=== PATIENT | female | born 1965 | race Caucasian/White ===

== ENCOUNTER 2024-10-17 10:19 | Outpatient (CLI) | payer OTHER, SELFPAY ==
--- OUTSIDE RECORDS SUMMARY | 2024-10-17 10:34 | XMS_ITS | Data Portability ---
Author Organization [facility] MARYLaura Warren Address 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 inspector follow up 6 months [email or web address] Not available 09/03/2024 12:50:22 Plan of Treatment Reminders Order Date Submit Date Provider Last Modified By Organization Details Last Modified Time Details Appointments ANY 15 2024 09:15A Darinel Mccartney MD Not available Not available Not available Lab lipid panel, serum 2024 025 [facility], [address], [place], [address], 08/30/2024 11:29:15 CMP, serum or plasma 2024 025 [facility] [email or web address] [email or web address], [address], [place], [address], 09/04/2024 11:49:15 CBC w/ auto diff [facility], [address], [place], [address], 09/04/2024 11:49:26 Referral None recorded. Procedures nerve conductio n study/EMG (PROC) - EMG/NCS b/l hands 2024 025 [facility] (Cardiology [facility]), [address], [place], [address], 09/27/2024 12:41:19 Surgeries None recorded. Imaging None recorded. Medication Orders Medrol (Juan) 4 mg tablets in a dose pack 2024 025 [id number], [address] [facility], [place], [place], [id number], 08/28/2024 17:54:10 Patient TargetsNo targets recorded. Patient Instructions Encounter Date Encounter Id Patient Instructions Last Modified By Organization Details Last Modified Time 08/28/2024 [id number] A healthy lifestyle: care instructions [email or web address] Not available 08/28/2024 17:54:10 Reason for Referral None Reported. Results Created Date Observation Date Name Description Value Unit Range Abnormal Flag Note LastModifiedBy Organization Detail LastModifiedTime 09/06/19 25 10/24/2021 MAMMO , scree erin, digit al, bilat eral No observ ation record ed. cyahlma Not Available 2024 14:58:33 09/06/19 25 08/12/2021 colon oscop y scree erin (PROC ) No observ ation record ed. BARCODE Not Available 2024 16:41:26 09/06/19 25 10/24/2021 MAMMO , scree erin, digit al, bilat eral No observ ation record ed. BARCODE Not Available 2024 16:41:26 Result Notes None recorded. Problems Name Problem SNOMED Code Status Onset Date Resolution Date Notes Provider Name and Address Organization Details Recorded Time Hand pain 73571163 Active 2024 MOHSEN Hernandez [place] - [facility] 12:40:41 Hyperlipidemia 75465354 Active 2024 MOHSEN Hernandez, [place] - [facility] 12:40:41 Problem Notes None recorded. Procedures Surgical History Date Name Laterality Status Provider Name and Address Organization Details Recorded Time 6 Eye Surgery completed Trena Polo MA [facility] 08/28/2024 12:39:26 Imaging Results Imaging Date Name Status LastModified by Organiz ation Details LastModified Time 10/24/2021 MAMMO, screening, digital, bilateral completed [email or web address] Information not available 09/12/2024 14:58:33 08/12/2021 colonoscopy screening (PROC) completed BARCODE Information not available 09/05/2024 16:41:26 10/24/2021 MAMMO, screening, digital, bilateral completed BARCODE Information not available 09/05/2024 16:41:26 Procedure Notes None recorded. Medical Equipment None Reported. Allergies No known drug allergies Medications Name Sig Start Date Stop Date Status Note LastModified by Organization Details LastModified Time amoxicillin 500 mg capsule TAKE 1 CAPSULE BY MOUTH THREE TIMES DAILY UNIL GONE 08/28 completed Not Available Not Available Not Available amoxicillin 500 mg tablet TAKE 1 TABLET BY MOUTH EVERY 8 HOURS UNTIL ALL TAKEN 08/28 completed Not Available Not Available Not Available methylpredn isolone 4 mg tablets in a dose pack FOLLOW PACKAGE DIRECTION S active Not Available Not Available No t Available rosuvastati n 20 mg tablet TAKE 1/2 TABLET BY MOUTH EVERY DAY active Not Available Not Available No t Available Vitals Date Recorded Body height Body mass index (BMI) Body weight Heart rate Oxygen saturation Oxygen saturation in Arterial blood by Pulse oximetry Systolic blood pressure Diastolic blood pressure Provider Name and Address Organization Details Last Updated DateTime 157.48 cm 28.6 kg/m2 43163.5 7 g 60 /min 97 % 97 % 128 mm[Hg] 62 mm[Hg] Trena Polo MA [facility] 11:46:40 Social History Question Answer Notes LastModified by Organizat ion Details LastModified Time Tobacco Smoking Status Never Smoker Trena Polo MA null, [facility] 08/28/2024 12:38:51 Do You Have An Advance Directive? No Information n ot available 08/28/2024 How Many Years Have You Consumed Alcohol? 30 Information not available 08/28/2024 Are You Blind Or Do You Have Difficulty Seeing? No Information n ot available 08/28/2024 What Is Your Level Of Caffeine Consumption? Occasional Information not available 08/28/2024 In The 14 Days Before Symptom Onset, Have You Had Close Contact With A Laboratory-confirm ed COVID-19 While That Case Was Ill? No Information n ot available 08/28/2024 In The 14 Days Before Symptom Onset, Have You Had Close Contact With A Person Who Is Under Investigation For COVID-19 While That Person Was Ill? No Information not available 08/28/2024 Have You Been To An Area Known To Be High Risk For COVID-19? No Information not available 08/28/2024 Are You Deaf Or Do You Have Serious Difficulty Hearing? No Information not available 08/28/2024 What Type Of Diet Are You Following? REGULAR Information n ot available 08/28/2024 Are There Any Guns Present In Your Home? No Information not available 08/28/2024 What Was The Date Of Your Most Recent Tobacco Screening? 08/28/2024 Information not available 08/28/2024 Do You Use Your Seat Belt Or Car Seat Routinely? Yes Information not available 08/28/2024 Do You Have Smoke And Carbon Monoxide Detectors In Your Home? Yes Information not available 08/28/2024 Do You Use Sunscreen Routinely? Yes Information not available 08/28/2024 Has Tobacco Cessation Counseling Been Provided? No Information not available 08/28/2024 Sex: Female Functional Status Question Answer Note LastModified by Organizat ion Details LastModified Time Do you use any illicit or recreational drugs? No Information not available 08/28/2024 Do you or have you ever used any other forms of tobacco or nicotine? No Information not available 08/28/2024 What is your level of alcohol consumption? Moderate Information not available 08/28/2024 Are you currently employed? Yes Information not available 08/28/2024 Are you able to care for yourself? Yes Information n ot available 08/28/2024 What is your exercise level? None Information not available 08/28/2024 Mental Status Question Answer Note LastModified by Organization D etails LastModified Time Do you feel stressed (tense, restless, nervous, or anxious, or unable to sleep at night)? [id number] Information not available 08/28/2024 Family History Relationship Description Onset Age of this Age Resolved Age Notes LastModified by Organization Details LastModified Time Father Coronary arterioscler osis mebyma Not available 2024 12:40:10 Father Dementia mebyma Not available 0 08/28/2024 12:40:18 Father Hypertensive disorder mebyma Not available 2024 12:40:32 Mother Coronary arterioscler osis mebyma Not available 2024 12:40:10 Mother Heart disease mebyma Not available 2024 12:40:26 Mother Hypercholest erolemia mebyma Not available 2024 12:40:38 Medical History Condition Response Coronary Artery Disease N Other N High Blood Pressure N Atrial Fibrillation N Kidney or Bladder Problems N Thyroid Problems N GI Problems N Depression N COPD N Blood Clots N Have you had a mammogram in the last yea r? N Skin Problems N Anemia N Heart Attack (AR) N Anxiety Disorder N Diabetes N Muscle, Joint, or Bone Problems N Seizures/Epilepsy N Have you had a colonoscopy in the last 1 0 years? N Acid Reflux (GERD) N Cancer N Stroke N Asthma N Allergies N Have you had a PSA blood test in the las t year? N High Cholesterol Y Hepatitis N Liver Disease N Headaches N Heart Failure N Osteoporosis N Gynecological HistoryNo gynecological history recorded. Obstetrics History GPAL:G 0 P 0 0 0 0 Immunizations Vaccine Type Date Status Note Provider Nam e and Address Organization Details Recorded Time COVID-19, mRNA, LNP-S, PF, 30 mcg/0.3 mL dose 2 completed Trena Melani, [place] null, [place] - [facility] 08/28/2024 11:39:41 COVID-19, mRNA, LNP-S, PF, 30 mcg/0.3 mL dose 1 completed Trena Polo, [place], [place] [facility] 08/28/2024 11:39:41 COVID-19, mRNA, LNP-S, PF, 30 mcg/0.3 mL dose 1 completed Trena Polo [place], [place] - [facility] 08/28/2024 11:39:41 Influenza, split virus, trivalent, PF 4 completed Trena Polo MA null, [facility] 08/28/2024 11:39:41 Influenza, split virus, quadrivalent, PF 1 completed Trena Polo MA null, [facility] 08/28/2024 11:39:41 Pneumococcal conjugate PCV20, polysaccharide [id number] conjugate, adjuvant, PF 5 completed Fransisco Mccartney MD Attn: [address] [place], [address], [facility] 09/03/2024 12:47:35 Past Encounters Encounter ID Performer Location Encounter Start Date Encounter Closed Date Diagnosis/Indication Diagnosis SNOMED-CT Code Diagnosis ICD10 Code Diagnosis Note [id number] Fransisco Mccartney MD [facility] [address] [place] [address] 08/28/2024 11:19:00 08/28/2024 12:42:59 Body mass index 25-29 - overweight 360094203 Z68.28 Overweight 904893358 E66 .3 Hand pain 74926981 M79.6 41 Hyperlipidemia 36546321 E78.5 Administra tion of pneumococcal vaccine 84807218 Z23 Health Concerns Section Related Observation LastModified by Organization Detai ls LastModified Time None Recorded Concern Status LastModified by Organization Details LastModified Time None Recorded Advance Directives Directive N: Payers Encounter Date Sequence Insurance Name Policy Number Policy Pastor Covered Member ID Pastor Member ID Guarantor Name 08/28/2024 1 [employer] - CHOICE (POS II) [id number] Derik Granados [id number] Piedad Granados Notes Date Note Type Note Provider Name and Address Organization Details Recorded Time 08/28/2024 text/html 59-year-old with dyslipidemia has had problems with carpal tunnel before and her back pain in her hands worse when she drives wakes her up at night sometimes Fransisco Mccartney MD Attn: [address] [place], [address], [facility] 09/03/2024 12:50:38 OBGyn Episode No OBEpisode recorded.
--- OUTSIDE RECORDS SUMMARY | 2024-10-17 10:34 | XMS_ITS | Data Portability ---
Author Organization [place] - [employer], Main Office Address [address] [place] [address] Care Team Providers Care Grocery Checker Name Role Phone JULIUS MCCARTNEY Primary Care Provider JULIUS MCCARTNEY Referring Provider [phone] Assessment Encounter Date Assessment Date Assessment LastModified by Organization Details LastModified Time 07/30/2022 07/30/2022 X-rays of the feet with nerve conduction studies check blood work in about 8 weeks as she has not been taking the rosuvastatin faithfully see me back in 3 months Podiatry referral [email or web address] Not available 09/06/2022 13:18:02 Plan of Treatment Reminders Order Date Submit Date Provider Last Modified By Organization Details Last Modified Time Details Appointments None recorded. 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 Surgeries None recorded. Imaging XR, foot 2022 023 lara [facility], [address] , [place], [address], 3 09:06:42 Medication Orders ergocalcife rol (vitamin D2) 1,250 mcg (50,000 unit) capsule 2022 023 [id number] [id number], [address], [place], [id number], 3 13:04:13 rosuvastati n 20 mg tablet [address] [id number], [address], [place], [id number], 3 13:04:13 Patient TargetsNo targets recorded. Patient InstructionsNo instructions recorded. Reason for Referral Facing Baster Referral for Pare sthesia of lower extremity Referring Physician: Julius Mccartney, Internal Medicine, Encounter Date: 07/30/2022 Results Created Date Observation Date Name Description Value Unit Range Abnormal Flag Note LastModifiedBy Organization Detail LastModifiedTime 10/22/19 22 10/21/2021 T3 FREE free T3 3.2 pg/mL 2.77-5 .27 Not Available [facility] (Lab) [address] [place], [address], 10/21/2021 19:44:00 10/22/19 22 10/21/2021 T4 FREE free T4 0.94 NG/dL 0.78-2 .19 Not Available [facility] (Lab) [address] [place], [address], 10/21/2021 19:43:53 10/22/19 22 10/21/2021 VITAM IN D 25-HY DROXY [id number] 19.7 NG/mL 30-100 low Vitam in D Statu s: Defic ient: <20 ng/mL Insuf ficie nt: 20-29 ng/mL Suffi cient : 30-10 0 ng/mL Not Available [facility] (Lab) [address] [place], [address], 10/21/2021 19:40:33 10/22/1910/21/2021 TSH thyroid-stim ulating hormone 1.940 uIU/m L 0.465- 4.680 Not Available [facility] (Lab) [address] [place], [address], 10/21/2021 20:08:47 10/22/19 22 10/21/2021 LIPID PANEL LDL cholesterol, calculated 169 mg/dL 0-130 high NIH TOMER NSUS REPOR T RECOM MENDA TIONS FOR LDL: ADULT CHILD LOW RISK <130 <110 (OPTI MAL LDL) <100 ----- BORDE RLINE : 130-1 59 ----- HIGH RISK: >160 >130 A TRIGL YCERI DE RESUL T >400 INVAL IDATE S THE CALCU LATIO N FOR LDL FRACT IONAT ION - THE LDL RESUL T WILL NOT BE REPOR JENNYFER. Not Available [facility] (Lab) [address] [place], [address], 10/21/2021 19:25:01 10/22/1910/21/2021 LIPID PANEL cholesterol 257 mg/dL 140-19 9 high NIH TOMER NSUS RECOM MENDA TION FOR LARRY STERO L: ADULT CHILD LOW RISK: <200 <170 BORDE RLINE : <200- 239 ----- HIGH RISK: >240 >200 Not Available [facility] (Lab) [address] [place], [address], 10/21/2021 19:25:01 10/22/1910/21/2021 LIPID PANEL triglyceride s 153 mg/dL 0-150 high NIH TOMER NSUS REPOR T RECOM MENDA TION FOR TRIGL YCERI JEMMA: ADULT CHILD LOW RISK: <150 ----- BODER LINE: 150-1 99 ----- HIGH RISK: >200 ----- Not Available [facility] (Lab) [address] [place], [address], 10/21/2021 19:25:01 10/22/19 22 10/21/2021 LIPID PANEL HDL cholesterol 57 mg/dL 40- Not Available [facility] (Lab) [address] [place], [address], 10/21/2021 19:25:01 10/22/19 22 10/21/2021 COMPR EHENS SASHA METAB OLIC PANEL carbon dioxide 27 mmol/ L 22-30 Not Available [facility] (Lab) [address] [place], [address], 10/21/2021 19:24:54 10/22/19 22 10/21/2021 COMPR EHENS SASHA METAB OLIC PANEL sodium 140 mmol/ L 137-14 5 Not Available [facility] (Lab) [address] [place], [address], 10/21/2021 19:24:54 10/22/19 22 10/21/2021 COMPR EHENS SASHA METAB OLIC PANEL potassium 4.8 mmol/ L 3.5-5. 1 Not Available [facility] (Lab) [address] [place], [address], 10/21/2021 19:24:54 10/22/19 22 10/21/2021 COMPR EHENS SASHA METAB OLIC PANEL chloride 108 mmol/ L 98-107 high Not Available [facility] (Lab) [address] [place], [address], 10/21/2021 19:24:54 10/22/19 22 10/21/2021 COMPR EHENS SASHA METAB OLIC PANEL anion gap 9.8 mmol/ L 14-22 low Not Available [facility] (Lab) [address] [place], [address], 10/21/2021 19:24:54 10/22/19 22 10/21/2021 COMPR EHENS SASHA METAB OLIC PANEL glucose 91 mg/dL 70-99 Not Available [facility] (Lab) [address] [place], [address], 10/21/2021 19:24:54 10/22/19 22 10/21/2021 COMPR EHENS SASHA METAB OLIC PANEL BUN 14 mg/dL 8-19 Not Available [facility] (Lab) [address] [place], [address], 10/21/2021 19:24:54 10/22/19 22 10/21/2021 COMPR EHENS SASHA METAB OLIC PANEL creatinine 0.68 mg/dL 0.66-1 .25 Not Available [facility] (Lab) [address] [place], [address], 10/21/2021 19:24:54 10/22/19 22 10/21/2021 COMPR EHENS SASHA METAB OLIC PANEL GFR >60 Refer ence Range : [place] ge GFR Healt hy Adult : >60 mL/mi n/1.7 3 m2 Chron ic Kidne y Disea se: 15-60 mL/mi n/1.7 3 m2 Kidne y Failu re: <15/m L/min /1.73 m2 www.n iddk. nih.g ov The MDRD study equat ion has not been valid ated in child sparkle <18 years of age; pregn ant women ; the elder ly >85 years of age; or in some racia l or ethni c subgr oups, such as Hiswa nics. Outsi de the valid ated vincenzo eters , estim ated GFR is less accur ate, requi ring clini davon judgm ent on a case- by-ca se basis . Clini davon inter preta tion for other races and ages must be made by the clini palomo. The MDRD study equat ion has not been valid ated for the evalu ation of serum creat inine relat ed to nutri roman l statu s or medic ation usage . For perso ns <18 years of age, a pedia tric GFR calcu lator is avail able on the [facility] websi te: https ://ww w.kid son.francisco sawant/pr ofess ional s/kdo qi/gf r_cal culat or Not Available [facility] (Lab) [address] [place], [address], 10/21/2021 19:24:54 10/22/19 22 10/21/2021 COMPR EHENS SASHA METAB OLIC PANEL alkaline phosphatase 94 U/L 38-126 Not Available [facility] (Lab) [address] [place], [address], 10/21/2021 19:24:54 10/22/19 22 10/21/2021 COMPR EHENS SASHA METAB OLIC PANEL alanine aminotransfe rase 18 U/L 0-35 Not Available [facility] (Lab) [address] [place], [address], 10/21/2021 19:24:54 10/22/19 22 10/21/2021 COMPR EHENS SASHA METAB OLIC PANEL aspartate aminotransfe rase 28 U/L 15-37 Not Available [facility] (Lab) [address] [place], [address], 10/21/2021 19:24:54 10/22/19 22 10/21/2021 COMPR EHENS SASHA METAB OLIC PANEL albumin 4.4 g/dL 3.4-5. 0 Not Available [facility] (Lab) [address] [place], [address], 10/21/2021 19:24:54 10/22/19 22 10/21/2021 COMPR EHENS SASHA METAB OLIC PANEL bilirubin, total 0.70 mg/dL 0.20-1 .30 Not Available [facility] (Lab) [address] [place], [address], 10/21/2021 19:24:54 10/22/19 22 10/21/2021 COMPR EHENS SASHA METAB OLIC PANEL calcium 9.5 mg/dL 8.4-10 .2 Not Available [facility] (Lab) [address] [place], [address], 10/21/2021 19:24:54 10/22/19 22 10/21/2021 COMPR EHENS SASHA METAB OLIC PANEL total protein 7.4 g/dL 6.3-8. 2 Not Available [facility] (Lab) [address] [place], [address], 10/21/2021 19:24:54 10/22/19 22 10/21/2021 COMPR EHENS SASHA METAB OLIC PANEL globulin 3.0 g/dL 2.6-4. 2 Not Available [facility] (Lab) [address] [place], [address], 10/21/2021 19:24:54 10/22/19 22 10/21/2021 COMPR EHENS SASHA METAB OLIC PANEL A/G ratio 1.5 ratio 1.0-2. 0 Not Available [facility] (Lab) [address] [place], [address], 10/21/2021 19:24:54 10/22/19 22 10/21/2021 CBC/C OMPLE TE BLD COUNT W/DIF F mean red cell volume 93.1 fL 82.0-9 9.0 Not Available [facility] (Lab) [address] [place], [address], 10/21/2021 19:16:05 10/22/19 22 10/21/2021 CBC/C OMPLE TE BLD COUNT W/DIF F white blood cells 4.2 x10'3 /uL 4.2-10 .8 Not Available [facility] (Lab) [address] [place], [address], 10/21/2021 19:16:05 10/22/19 22 10/21/2021 CBC/C OMPLE TE BLD COUNT W/DIF F red blood cells 4.52 x10'6 /uL 3.80-5 .20 Not Available [facility] (Lab) [address] [place], [address], 10/21/2021 19:16:05 10/22/19 22 10/21/2021 CBC/C OMPLE TE BLD COUNT W/DIF F hemoglobin 13.7 g/dL 12.0-1 5.6 Not Available [facility] (Lab) [address] [place], [address], 10/21/2021 19:16:05 10/22/19 22 10/21/2021 CBC/C OMPLE TE BLD COUNT W/DIF F hematocrit 42.1 % 35.7-4 5.7 Not Available [facility] (Lab) [address] [place], [address], 10/21/2021 19:16:05 10/22/19 22 10/21/2021 CBC/C OMPLE TE BLD COUNT W/DIF F mean red cell hemoglobin 30.3 pg 27.0-3 3.0 Not Available [facility] (Lab) [address] [place], [address], 10/21/2021 19:16:05 10/22/19 22 10/21/2021 CBC/C OMPLE TE BLD COUNT W/DIF F mean RBC HGB concentratio n 32.5 g/dL 31.0-3 6.0 Not Available [facility] (Lab) [address] [place], [address], 10/21/2021 19:16:05 10/22/19 22 10/21/2021 CBC/C OMPLE TE BLD COUNT W/DIF F red cell distribution width 12.0 % 11.8-1 5.5 Not Available [facility] (Lab) [address] [place], [address], 10/21/2021 19:16:05 10/22/19 22 10/21/2021 CBC/C OMPLE TE BLD COUNT W/DIF F platelets 237 x10'3 /uL 150-40 0 Not Available [facility] (Lab) [address] [place], [address], 10/21/2021 19:16:05 10/22/19 22 10/21/2021 CBC/C OMPLE TE BLD COUNT W/DIF F mean platelet volume 10.2 fL 9.0-12 .4 Not Available [facility] (Lab) [address] [place], [address], 10/21/2021 19:16:05 10/22/19 22 10/21/2021 CBC/C OMPLE TE BLD COUNT W/DIF F neutrophils 50.2 % 39.0-7 2.0 Not Available [facility] (Lab) [address] [place], [address], 10/21/2021 19:16:05 10/22/19 22 10/21/2021 CBC/C OMPLE TE BLD COUNT W/DIF F lymphocytes 40.1 % 16.0-4 7.0 Not Available [facility] (Lab) [address] [place], [address], 10/21/2021 19:16:05 10/22/19 22 10/21/2021 CBC/C OMPLE TE BLD COUNT W/DIF F monocytes 6.4 % 5.0-12 .0 Not Available [facility] (Lab) [address] [place], [address], 10/21/2021 19:16:05 10/22/19 22 10/21/2021 CBC/C OMPLE TE BLD COUNT W/DIF F eosinophils 2.4 % 1.0-7. 0 Not Available [facility] (Lab) [address] [place], [address], 10/21/2021 19:16:05 10/22/19 22 10/21/2021 CBC/C OMPLE TE BLD COUNT W/DIF F basophils 0.7 % 0.0-2. 0 Not Available [facility] (Lab) [address] [place], [address], 10/21/2021 19:16:05 10/22/19 22 10/21/2021 CBC/C OMPLE TE BLD COUNT W/DIF F immature granulocytes 0.2 % 0.00-0 .50 Not Available [facility] (Lab) [address] [place], [address], 10/21/2021 19:16:05 10/22/19 22 10/21/2021 CBC/C OMPLE TE BLD COUNT W/DIF F neutrophils, absolute count 2.13 x10'3 /uL 1.5-8. 0 Not Available [facility] (Lab) [address] [place], [address], 10/21/2021 19:16:05 10/22/19 22 10/21/2021 CBC/C OMPLE TE BLD COUNT W/DIF F lymphocytes, absolute count 1.70 x10'3 /uL 1.07-3 .43 Not Available [facility] (Lab) [address] [place], [address], 10/21/2021 19:16:05 10/22/19 22 10/21/2021 CBC/C OMPLE TE BLD COUNT W/DIF F monocytes, absolute count 0.27 x10'3 /uL 0.29-0 .99 low Not Available [facility] (Lab) [address] [place], [address], 10/21/2021 19:16:05 10/22/19 22 10/21/2021 CBC/C OMPLE TE BLD COUNT W/DIF F eosinophils, absolute count 0.10 x10'3 /uL 0.02-0 .53 Not Available [facility] (Lab) [address] [place], [address], 10/21/2021 19:16:05 10/22/19 22 10/21/2021 CBC/C OMPLE TE BLD COUNT W/DIF F basophils, absolute count 0.03 x10'3 /uL 0.01-0 .08 Not Available [facility] (Lab) [address] [place], [address], 10/21/2021 19:16:05 10/22/19 22 10/21/2021 CBC/C OMPLE TE BLD COUNT W/DIF F immature granulocytes ,absolute 0.01 x10'3 /uL 0.00-0 .05 Not Available [facility] (Lab) [address] [place], [address], 10/21/2021 19:16:05 10/22/19 22 10/21/2021 CBC/C OMPLE TE BLD COUNT W/DIF F nucleated red blood cells 0.0 % -0 Not Available [facility] (Lab) [address] [place], [address], 10/21/2021 19:16:05 10/22/19 22 10/21/2021 CBC/C OMPLE TE BLD COUNT W/DIF F NRBC# 0.00 x10'3 /uL Not Available [facility] (Lab) [address] [place], [address], 10/21/2021 19:16:05 03/12/20 22 03/12/2022 COMPR EHENS SASHA METAB OLIC PANEL BUN 17 mg/dL 8-19 Not Available [facility] (Lab) [address] [place], [address], 03/12/2022 13:45:24 03/12/20 22 03/12/2022 COMPR EHENS SASHA METAB OLIC PANEL sodium 139 mmol/ L 137-14 5 Not Available [facility] (Lab) [address] [place], [address], 03/12/2022 13:45:24 03/12/2003/12/2022 COMPR EHENS SASHA METAB OLIC PANEL potassium 4.8 mmol/ L 3.5-5. 1 Not Available [facility] (Lab) [address] [place], [address], 03/12/2022 13:45:24 03/12/20 22 03/12/2022 COMPR EHENS SASHA METAB OLIC PANEL chloride 104 mmol/ L 98-107 Not Available [facility] (Lab) [address] [place], [address], 03/12/2022 13:45:24 03/12/2003/12/2022 COMPR EHENS SASHA METAB OLIC PANEL carbon dioxide 29 mmol/ L 22-30 Not Available [facility] (Lab) [address] [place], [address], 03/12/2022 13:45:24 03/12/20 22 03/12/2022 COMPR EHENS SASHA METAB OLIC PANEL anion gap 10.8 mmol/ L 14-22 low Not Available [facility] (Lab) [address] [place], [address], 03/12/2022 13:45:24 03/12/20 22 03/12/2022 COMPR EHENS SASHA METAB OLIC PANEL glucose 84 mg/dL 70-99 Not Available [facility] (Lab) [address] [place], [address], 03/12/2022 13:45:24 03/12/20 22 03/12/2022 COMPR EHENS SASHA METAB OLIC PANEL creatinine 0.71 mg/dL 0.66-1 .25 Not Available [facility] (Lab) [address] [place], [address], 03/12/2022 13:45:24 03/12/20 22 03/12/2022 COMPR EHENS SASHA METAB OLIC PANEL GFR >60 Refer ence Range : [place] ge GFR Healt hy Adult : >60 mL/mi n/1.7 3 m2 Chron ic Kidne y Disea se: 15-60 mL/mi n/1.7 3 m2 Kidne y Failu re: <15/m L/min /1.73 m2 www.n iddk. nih.g ov The MDRD study equat ion has not been valid ated in child sparkle <18 years of age; pregn ant women ; the elder ly >85 years of age; or in some racia l or ethni c subgr oups, such as Hispa nics. Outsi de the valid ated vincenzo eters , estim ated GFR is less accur ate, requi ring clini davon judgm ent on a case- by-ca se basis . Clini davon inter preta tion for other races and ages must be made by the clini palomo. The MDRD study equat ion has not been valid ated for the evalu ation of serum creat inine relat ed to nutri roman l statu s or medic ation usage . For perso ns <18 years of age, a pedia tric GFR calcu lator is avail able on the [facility] websi te: https ://cathy w.kid son.o rg/pr ofess ional s/kdo qi/gf r_cal culat or Not Available [facility] (Lab) [address] [place], [address], 03/12/2022 13:45:24 03/12/20 22 03/12/2022 COMPR EHENS SASHA METAB OLIC PANEL alkaline phosphatase 86 U/L 38-126 Not Available [facility] (Lab) [address] [place], [address], 03/12/2022 13:45:24 03/12/20 22 03/12/2022 COMPR EHENS SASHA METAB OLIC PANEL alanine aminotransfe rase 26 U/L 0-35 Not Available [facility] (Lab) [address] [place], [address], 03/12/2022 13:45:24 1003/12/2022 COMPR EHENS SASHA METAB OLIC PANEL aspartate aminotransfe rase 29 U/L 15-37 Not Available [facility] (Lab) [address] [place], [address], 03/12/2022 13:45:24 03/12/20 22 03/12/2022 COMPR EHENS SASHA METAB OLIC PANEL bilirubin, total 0.70 mg/dL 0.20-1 .30 Not Available [facility] (Lab) [address] [place], [address], 03/12/2022 13:45:24 03/12/20 22 03/12/2022 COMPR EHENS SASHA METAB OLIC PANEL calcium 9.7 mg/dL 8.4-10 .2 Not Available [facility] (Lab) [address] [place], [address], 03/12/2022 13:45:24 03/12/20 22 03/12/2022 COMPR EHENS SASHA METAB OLIC PANEL total protein 7.4 g/dL 6.3-8. 2 Not Available [facility] (Lab) [address] [place], [address], 03/12/2022 13:45:24 03/12/20 22 03/12/2022 COMPR EHENS SASHA METAB OLIC PANEL albumin 4.7 g/dL 3.4-5. 0 Not Available [facility] (Lab) [address] [place], [address], 03/12/2022 13:45:24 03/12/20 22 03/12/2022 COMPR EHENS SASHA METAB OLIC PANEL globulin 2.7 g/dL 2.6-4. 2 Not Available [facility] (Lab) [address] [place], [address], 03/12/2022 13:45:24 03/12/20 22 03/12/2022 COMPR EHENS SASHA METAB OLIC PANEL A/G ratio 1.7 ratio 1.0-2. 0 Not Available [facility] (Lab) [address] [place], [address], 03/12/2022 13:45:24 03/12/2003/12/2022 CBC/C OMPLE TE BLD COUNT W/DIF F white blood cells 5.6 x10'3 /uL 4.2-10 .8 Not Available [facility] (Lab) [address] [place], [address], 03/12/2022 13:11:13 03/12/2003/12/2022 CBC/C OMPLE TE BLD COUNT W/DIF F red blood cells 4.51 x10'6 /uL 3.80-5 .20 Not Available [facility] (Lab) [address] [place], [address], 03/12/2022 13:11:13 03/12/2003/12/2022 CBC/C OMPLE TE BLD COUNT W/DIF F hemoglobin 13.5 g/dL 12.0-1 5.6 Not Available [facility] (Lab) [address] [place], [address], 03/12/2022 13:11:13 03/12/2003/12/2022 CBC/C OMPLE TE BLD COUNT W/DIF F hematocrit 41.9 % 35.7-4 5.7 Not Available [facility] (Lab) [address] [place], [address], 03/12/2022 13:11:13 03/12/2003/12/2022 CBC/C OMPLE TE BLD COUNT W/DIF F mean red cell volume 92.9 fL 82.0-9 9.0 Not Available [facility] (Lab) [address] [place], [address], 03/12/2022 13:11:13 03/12/2003/12/2022 CBC/C OMPLE TE BLD COUNT W/DIF F platelets 244 x10'3 /uL 150-40 0 Not Available [facility] (Lab) [address] [facility] [place], [address], 03/12/2022 13:11:13 03/12/2003/12/2022 CBC/C OMPLE TE BLD COUNT W/DIF F mean red cell hemoglobin 29.9 pg 27.0-3 3.0 Not Available [facility] (Lab) [address] [place], [address], 03/12/2022 13:11:13 03/12/2003/12/2022 CBC/C OMPLE TE BLD COUNT W/DIF F mean RBC HGB concentratio n 32.2 g/dL 31.0-3 6.0 Not Available [facility] (Lab) [address] [place], [address], 03/12/2022 13:11:13 03/12/2003/12/2022 CBC/C OMPLE TE BLD COUNT W/DIF F red cell distribution width 11.9 % 11.8-1 5.5 Not Available [facility] (Lab) [address] [place], [address], 03/12/2022 13:11:13 03/12/2003/12/2022 CBC/C OMPLE TE BLD COUNT W/DIF F mean platelet volume 9.8 fL 9.0-12 .4 Not Available [facility] (Lab) [address] [place], [address], 03/12/2022 13:11:13 03/12/2003/12/2022 CBC/C OMPLE TE BLD COUNT W/DIF F neutrophils 57.6 % 39.0-7 2.0 Not Available [facility] (Lab) [address] [place], [address], 03/12/2022 13:11:13 03/12/2003/12/2022 CBC/C OMPLE TE BLD COUNT W/DIF F lymphocytes 32.4 % 16.0-4 7.0 Not Available [facility] (Lab) [address] [place], [address], 03/12/2022 13:11:13 03/12/2003/12/2022 CBC/C OMPLE TE BLD COUNT W/DIF F monocytes 6.8 % 5.0-12 .0 Not Available [facility] (Lab) [address] [place], [address], 03/12/2022 13:11:13 03/12/2003/12/2022 CBC/C OMPLE TE BLD COUNT W/DIF F eosinophils 2.3 % 1.0-7. 0 Not Available [facility] (Lab) [address] [place], [address], 03/12/2022 13:11:13 03/12/2003/12/2022 CBC/C OMPLE TE BLD COUNT W/DIF F basophils 0.7 % 0.0-2. 0 Not Available [facility] (Lab) [address] [place], [address], 03/12/2022 13:11:13 03/12/2003/12/2022 CBC/C OMPLE TE BLD COUNT W/DIF F immature granulocytes 0.2 % 0.00-0 .50 Not Available [facility] (Lab) [address] [place], [address], 03/12/2022 13:11:13 03/12/2003/12/2022 CBC/C OMPLE TE BLD COUNT W/DIF F neutrophils, absolute count 3.19 x10'3 /uL 1.5-8. 0 Not Available [facility] (Lab) [address] [place], [address], 03/12/2022 13:11:13 03/12/2003/12/2022 CBC/C OMPLE TE BLD COUNT W/DIF F lymphocytes, absolute count 1.80 x10'3 /uL 1.07-3 .43 Not Available [facility] (Lab) [address] [place], [address], 03/12/2022 13:11:13 03/12/2003/12/2022 CBC/C OMPLE TE BLD COUNT W/DIF F monocytes, absolute count 0.38 x10'3 /uL 0.29-0 .99 Not Available [facility] (Lab) [address] [place], [address], 03/12/2022 13:11:13 03/12/2003/12/2022 CBC/C OMPLE TE BLD COUNT W/DIF F eosinophils, absolute count 0.13 x10'3 /uL 0.02-0 .53 Not Available [facility] (Lab) [address] [place], [address], 03/12/2022 13:11:13 03/12/2003/12/2022 CBC/C OMPLE TE BLD COUNT W/DIF F basophils, absolute count 0.04 x10'3 /uL 0.01-0 .08 Not Available [facility] (Lab) [address] [place], [address], 03/12/2022 13:11:13 03/12/2003/12/2022 CBC/C OMPLE TE BLD COUNT W/DIF F immature granulocytes ,absolute 0.01 x10'3 /uL 0.00-0 .05 Not Available [facility] (Lab) [address] [place], [address], 03/12/2022 13:11:13 03/12/20 22 03/12/2022 CBC/C OMPLE TE BLD COUNT W/DIF F nucleated red blood cells 0.0 % -0 Not Available [facility] (Lab) [address] [place], [address], 03/12/2022 13:11:13 03/12/2003/12/2022 CBC/C OMPLE TE BLD COUNT W/DIF F NRBC# 0.00 x10'3 /uL Not Available [facility] (Lab) [address] [place], [address], 03/12/2022 13:11:13 03/12/2003/12/2022 LIPID PANEL cholesterol 143 mg/dL 140-19 9 NIH TOMER NSUS RECOM MENDA TION FOR LARRY STERO L: ADULT CHILD LOW RISK: <200 <170 BORDE RLINE : <200- 239 ----- HIGH RISK: >240 >200 Not Available [facility] (Lab) [address] [place], [address], 03/12/2022 13:45:27 03/12/2003/12/2022 LIPID PANEL triglyceride s 103 mg/dL 0-150 NIH TOMER NSUS REPOR T RECOM MENDA TION FOR TRIGL YCERI JEMMA: ADULT CHILD LOW RISK: <150 ----- BODER LINE: 150-1 99 ----- HIGH RISK: >200 ----- Not Available [facility] (Lab) [address] [place], [address], 03/12/2022 13:45:27 03/12/20 22 03/12/2022 LIPID PANEL HDL cholesterol 58 mg/dL 40- Not Available [facility] (Lab) [address] [place], [address], 03/12/2022 13:45:27 03/12/2003/12/2022 LIPID PANEL LDL cholesterol, calculated 64 mg/dL 0-130 NIH TOMER NSUS REPOR T RECOM MENDA TIONS FOR LDL: ADULT CHILD LOW RISK <130 <110 (OPTI MAL LDL) <100 ----- BORDE RLINE : 130-1 59 ----- HIGH RISK: >160 >130 A TRIGL YCERI DE RESUL T >400 INVAL IDATE S THE CALCU LATIO N FOR LDL FRACT IONAT ION - THE LDL RESUL T WILL NOT BE REPOR JENNYFER. Not Available [facility] (Lab) [address], [place], [address], 03/12/2022 13:45:27 10/25/19 22 MAMMO , scree erin, digit al, bilat eral [facility] [address], [place] [address] Patien t Name: PIEDAD FLORES Access ion #: [id number] Sex: F : 1964 8 Locati on: RA2 Attend ing Physic giovanni: AZEEM MCCARTNEY Orderi ng Physic giovanni: AZEEM MCCARTNEY Exam Date: 022 10:47 AM Exam Name: MG DIGITA L GLORIA BILAT SCREEN Admitt ing Diagno sis(es ): RADIOL OGY REPORT - FINAL EXAM: MG DIGITA L GLORIA BILAT SCREEN HISTOR Y: Screen ing mammog minda 56-yea r-old female with no curren t breast compla ints. COMPAR MANUELITO: None availa ble. TECHNI QUE: Bilate ral CC and MLO views of the breast s were perfor med. Digita l Mammog césar images were obtain ed. CAD (compu ter assist ed detect ion) was utiliz ed. FINDIN GS: The breast s are hetero geneou sly dense, which may obscur e small masses . There are left upper outer breast benign -appea ring intram ammary lymph nodes. No other masses , asymme tries, suspic ious calcif icatio ns, or karina ectura l Page 1 of 2 [facility] Patien t Name: PIEDAD FLORES Access ion #: [id number] Sex: F : 1964 8 Exam Date: 022 10:47 AM Exam Name: MG DIGITA L GLORIA BILAT SCREEN Admitt ing Diagno sis(es ): distor tion are seen. IMPRES KENNETH: BIRADS 2: Assess ment comple te. Benign findin gs. Recomm end annual screen ing mammog césar. Accord ing to the [employer], yearly mammog claudia are recomm ended starti ng at age 40 and contin uing as long as the woman is in good health . Clinic al Breast Exam should be part of the period ic health exam-a bout every 3 years for women in their 20s and 30s and every year for women 40 and over. Breast self-e xam is an option for women in their 20s. Any breast change noted on the breast self-e xam she would be report ed prompt ly to the [facility]. A negati ve mammog césar report should not discou rage follow -up or biopsy of a clinic ally signif icant findin g and/or abnorm ality. Dense breast tissue may obscur e small neopla sms. This daljit cortes has been entere d into a mammog césar remind er system with a target date for her next mammog minda. Create d and electr onical ly signed by: Star moses MD Signed Date: 11:10 AM (CT) Dictat ed by: Star moses MD DD: 11:10 AM (CT) DT: 11:10 AM (CT) Page 2 of 2 [id number] [facility] (Imaging) [address] [place], [address], 07/29/2022 10:53:21 02/24/20 22 05/11/2019 nerve condu ction study No observ ation record ed. [id number] [facility]- Neurology [address] [place] [address] , [place], [address], 07/29/2022 10:53:21 03/03/20 22 XR, hand, 3 or more view No observ ation record ed. [id number] [facility]nam[facility] [address], [place], [address], 07/29/2022 10:53:21 Result Notes None recorded. Problems Name Problem SNOMED Code Status Onset Date Resolution Date Notes Provider Name and Address Organization Details Recorded Time Low back pain 011131280 Active 2021 Not Available [facility] 3 10:48:19 Pain in right hand 1884695293032 09 Active 2021 Not Available [facility] 3 10:48:19 Vitamin D deficiency 87649851 Active 2021 Not Available [facility] 3 10:48:19 Upper respirator y infection 26356495 Active 2021 Not Available [facility] 3 10:48:19 Hyperlipid emia 78938844 Active 2021 Not Available [facility] 3 10:48:19 Carpal tunnel syndrome 66148318 Active 2021 Not Available [facility] 3 10:48:19 Colorectal cancer detected by DNA-based stool screening 348927896 Active 2021 Not Available [facility] 3 10:48:19 Weight gain 0435714 Active 2021 Not Available [facility] 3 10:48:19 Paresthesi a of lower extremity 790969419 Active 2022 MILTON Hernandez, [place] - [facility] 3 13:00:42 Problem Notes None recorded. Procedures Surgical History Date Name Laterality Status Provider Name and Address Organization Details Recorded Time Excisions - Specify completed Not Available [facility] 07/29/2022 10:43:12 Imaging Results Imaging Date Name Status LastModified by Organiz ation Details LastModified Time 10/24/2021 MAMMO, screening, digital, bilateral completed [id number] [facility] (Imaging) [address] [place], [address], 07/29/2022 10:53:21 05/11/2019 nerve conduction study completed [id number] [facility]- Neurology [address] [place] [address], [place], [address], 07/29/2022 10:53:21 03/03/2022 XR, hand, 3 or more view completed [facility].[id number] [facility] [address] [facility] [address], [place], [address], 07/29/2022 10:53:21 Procedure Notes None recorded. Medical Equipment None Reported. Allergies No known drug allergies Medications Name Sig Start Date Stop Date Status Note LastModified by Organization Details LastModified Time atorvastati n 20 mg tablet Take 1 tablet every day by oral route in the evening. 03/03 completed Not Available Not Available Not Available tizanidine 4 mg tablet TAKE 1 TABLET BY MOUTH EVERY DAY AT BEDTIME 03/03 completed Not Available Not Available Not Available hydrocodone 5 mg-acetamin ophen 325 mg tablet 12/13 completed Not Available Not Available Not Available Zithromax Z-Juan 250 mg tablet TAKE 2 TABLETS (500 MG) BY ORAL ROUTE ONCE DAILY FOR 1 DAY THEN 1 TABLET (250 MG) BY ORAL ROUTE ONCE DAILY FOR 4 DAYS 07/30 completed Not Available Not Available Not Available amoxicillin 500 mg tablet Take 1 tablet 3 times a day by oral route for 10 days. 03/11 completed Not Available Not Available Not Available amoxicillin 875 mg tablet 12/13 completed Not Available Not Available Not Available cephalexin 500 mg capsule Take 1 capsule 3 times a day by oral route for 10 days. 03/07 completed Not Available Not Available Not Available etodolac 400 mg tablet Take 1 tablet twice a day by oral route for 10 days. active Not Available Not Available No t Available bisacodyl 5 mg tablet,franklin yed release TAKE 6 TABLETS BY MOUTH AT 8 AM 08/11 completed Not Available Not Available Not Available ergocalcife rol (vitamin D2) 1,250 mcg (50,000 unit) capsule TAKE 1 CAPSULE BY MOUTH EVERY WEEK active Not Available Not Available No t Available methylpredn isolone 4 mg tablets in a dose pack FOLLOW PACKAGE DIRECTION S 03/17 completed Not Available Not Available Not Available albuterol sulfate HFA 90 mcg/actuati on aerosol inhaler Inhale 2 puffs every 4 hours by inhalatio n route. 03/07 completed Not Available Not Available Not Available amoxicillin 500 mg-ethelu m clavulanate 125 mg tablet 12/13 completed Not Available Not Available Not Available rosuvastati n 20 mg tablet TAKE 1 TABLET BY MOUTH EVERY DAY active Not Available Not Available No t Available Benadryl [facility] 03/07 completed Not Available Not Available Not Available peg 3350-electr olytes 236 gram-22.74 gram-6.74 gram-5.86 gram solution MIX AND DRINK DIRECTED 10/21 completed Not Available Not Available Not Available Wegovy 0.25 mg/0.5 mL subcutaneou s pen injector INJECT 0.25MG EVERY WEEK FOR 4 WEEKS 03/03 completed Not Available Not Available Not Available Vitals Date Recorded Body mass index (BMI) Body height Heart rate Body temperature Body weight Systolic blood pressure Diastolic blood pressure Provider Name and Address Organization Details Last Updated DateTime 2 29.3 kg/m2 158.75 cm 62 /min 96.3 [degF] 11612.5 6 g 120 mm[Hg] 70 mm[Hg] Not Available [facility] 3 10:45:34 Date Recorded Body mass index (BMI) Body height Body weight Provider Name and Address Organization Details Last Updated DateTime 03/03/2022 29.3 kg/m2 158.75 cm 98435.56 g Not Available [facility] 07/29/2022 10:45:35 Date Recorded Body mass index (BMI) Body height Heart rate Body temperature Body weight Systolic blood pressure Diastolic blood pressure Provider Name and Address Organization Details Last Updated DateTime 2 27.4 kg/m2 158.75 cm 61 /min 97 [degF] 26956.0 4 g 130 mm[Hg] 82 mm[Hg] Not Available [facility] 3 10:45:34 Date Recorded Body mass index (BMI) Body height Body weight Provider Name and Address Organization Details Last Updated DateTime 05/20/2022 27 kg/m2 158.75 cm 27965.86 g Not Available [facility] 07/29/2022 10:45:35 Date Recorded Body height Body mass index (BMI) Body weight Body temperature Heart rate Systolic blood pressure Diastolic blood pressure Provider Name and Address Organization Details Last Updated DateTime 3 158.75 cm 27.7 kg/m2 81869.2 2 g 97.9 [degF] 61 /min 122 mm[Hg] 78 mm[Hg] MILTON Lim [place] - [facility] 3 11:59:35 Social History Question Answer Notes LastModified by Organizat ion Details LastModified Time Tobacco Smoking Status Never Smoker Not Available [facility] 07/29/2022 10:42:09 Do You Have An Advance Directive? No [id number] Information not available 07/29/2022 Do You Wear A Helmet When Biking? No MIGRATION.[id number] 2813 Information not available 07/29/2022 What Is Your Level Of Caffeine Consumption? Heavy MIGRATION.[id number] 0338 Information not available 07/29/2022 In The 14 Days Before Symptom Onset, Have You Had Close Contact With A Laboratory-confir med COVID-19 While That Case Was Ill? No MIGRATION.[id number] 4014 Information not available 07/29/2022 In The 14 Days Before Symptom Onset, Have You Had Close Contact With A Person Who Is Under Investigation For COVID-19 While That Person Was Ill? No MIGRATION.900424 5338 Information not available 07/29/2022 What Type Of Diet Are You Following? REGULAR MIGRATION.995346 0606 Information not available 07/29/2022 What Is The Highest Grade Or Level Of School You Have Completed Or The Highest Degree You Have Received? [id number] MIGRATION.709124 4223 Information not available 07/29/2022 Have There Been Any Changes To Your Family Or Social Situation? No MIGRATION.084809 3086 Information not available 07/29/2022 Are There Any Guns Present In Your Home? No MIGRATION.[id number] 3609 Information not available 07/29/2022 Do You Use Insect Repellent Routinely? Yes MIGRATION.792766 2667 Information not available 07/29/2022 [facility] MIGRATION.267389 9796 Information not available 07/29/2022 Do You Have A Medical Power Of Distributor Cleaner? No MIGRATION.555941 4352 Information not available 07/29/2022 What Was The Date Of Your Most Recent Tobacco Screening? 07/30/2022 [email or web address] Information not available 07/30/2022 Do You Have Any Pets? Yes MIGRATION.535651 1065 Information not available 07/29/2022 What Is Your Relationship Status? MIGRATION.284480 2340 Information not available 07/29/2022 Do You Use Your Seat Belt Or Car Seat Routinely? Yes MIGRATION.799757 6340 Information not available 07/29/2022 Do You Have Smoke And Carbon Monoxide Detectors In Your Home? Yes MIGRATION.874342 4010 Information not available 07/29/2022 Are You Passively Exposed To Smoke? No MIGRATION.132603 2105 Information not available 07/29/2022 Are There Any Smokers In Your House? No MIGRATION.105701 4014 Information not available 07/29/2022 Do You Use Sunscreen Routinely? Yes MIGRATION.319664 0140 Information not available 07/29/2022 Have You Recently Traveled Abroad? No MIGRATION.280300 2820 Information not available 07/29/2022 Do You Have Any Dietary Restrictions? No MIGRATION.461677 9354 Information not available 07/29/2022 Sex: Female Functional Status Question Answer Note LastModified by [employer] Details LastModified Time Do you use any illicit or recreational drugs? No MIGRATION.166612 1878 Information not available 07/29/2022 Do you or have you ever used any other forms of tobacco or nicotine? No MIGRATION.408443 4802 Information not available 07/29/2022 What is your level of alcohol consumption? 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 Moderate MIGRATION.810874 4514 Information not available 07/29/2022 Mental Status Question Answer Note LastModified by [employer] Details LastModified Time Do you feel stressed (tense, restless, nervous, or anxious, or unable to sleep at night)? [id number] [id number] Information not available 07/29/2022 Family History Relationship Description Onset Age of this Age Resolved Age Notes LastModified by Organization Details LastModified Time Mother Hyperlipidem ia [id number] Not available 07/29/2022 10:43:14 Mother Heart disease [id number] Not available 07/29/2022 10:43:14 Father Transient ischemia [id number] Not available 07/29/2022 10:43:14 Medical History Condition Response NERVE DISEASE N BLINDNESS N RHEUMATIC FEVER N KIDNEY STONES N BLADDER PROBLEMS N MRSA N OTHER # 1 N POLIO N LUNG DISEASE/DISORDER N HISTORY OF DRUG ABUSE N COPD N RADIATION / CHEMOTHERAPY N Other # 2 N BLOOD DISEASES N EAR OR HEARING PROBLEMS N MUMPS N SHINGLES N BOWEL PROBLEMS N DEPRESSION (INCLUDING POST ) N STROKE/TIA N ULCERS N BENIGN PROSTATIC HYPERPLASIA N MEASLES N HYPOTENSION N MYOCARDIAL INFARCTION N OBESITY N GERD/NAUSEA N ANEURYSM N URINARY/BLADDER/KIDNEY PROBLEMS N CORONARY ARTERY DISEASE (CAD) N ADDICTION CONCERNS N ENDOMETRIOSIS N Impotence N USE OF BLOOD THINNERS N SKIN PROBLEMS N GASTROINTESTINAL DISORDER N PERIPHERAL VASCULAR DISEASE N MUSCLE,JOINT OR BONE PROBLEMS N GASTROINTESTINAL BLEEDING N BLOOD CLOTS N ASTHMA N CATARACTS N ERECTILE DYSFUNCTION N VARICOSITIES N GI PROBLEMS N Low Testosterone N INFERTILITY N AIDS/HIV N CHEMOTHERAPY / RADIATION N LIVER DISEASE N MALE HYPOGONADISM N HYPERTENSION N Deficiency N TOURETTE'S N ANXIETY DISORDER N BLOOD TRANSFUSION N ANEMIA/BLOOD DISORDER N CHRONIC EAR INFECTIONS N BRONCHITIS N TUBERCULOSIS N GLAUCOMA N FOOT PROBLEM N DIVERTICULITIS N CHICKENPOX Y SLEEP APNEA N INFECTIOUS DISEASE N HEART ARRHYTHMIA N PROSTATE N INSOMNIA N HIGH CHOLESTEROL / HYPERLIPIDEMIA N HYPERTHYROIDISM N EYE PROBLEMS N EDEMA N CHRONIC PAIN SYNDROME N HYPOTHYROIDISM N CAROTID BLOCKAGE N CONSTIPATION N BACK / NECK PROBLEMS N HAVE YOU BEEN HOSPITALIZED OR SEEN IN [facility] IN THE PAST YEAR ? N ATHEROSCLEROSIS N BREAST PROBLEMS N DIALYSIS N ECZEMA N OSTEOPOROSIS N ARTHRITIS N NO SIGNIFICANT PAST MEDICAL HISTORY N APPENDICITIS N DIABETES, TYPE N BAD TEETH N ENT N HEARTBURN / REFLUX N AUTISM SPECTRUM DISORDER (ASD) N HEPATITIS / LIVER DISEASE N GOUT N SLEEP DISORDER N ALZHEIMER'S DISEASE N Brain Problems N HERPES N DEMENTIA N HEADACHES/MIGRAINES N SEIZURES/EPILEPSY N VASCULAR DISEASE N PACEMAKER N Blood Disorder N DIZZINESS N HEART DISEASE/HEART PROBLEMS N KIDNEY DISEASE N MULTIPLE SCLEROSIS N CARDIAC ARRHYTHMIA N CANCER: SPECIFY N ATRIAL FIBRILLATION N Gall Stones N PULMONARY EMBOLISM N AUTOIMMUNE DISEASE N Gynecological HistoryNo gynecological history recorded. Obstetrics History GPAL:G 0 P 0 0 0 0 Immunizations Vaccine Type Date Status Note Provider Nam e and Address Organization Details Recorded Time COVID-19, mRNA, LNP-S, PF, 30 mcg/0.3 mL dose 09/07/2020 completed Not Available [facility] 10:52:47 COVID-19, mRNA, LNP-S, PF, 30 mcg/0.3 mL dose 08/05/2020 completed Not Available [facility] 3 10:52:47 Influenza, split virus, quadrivalent, PF 04/03/2021 completed Not Available [facility] 3 10:52:47 Past Encounters Encounter ID Performer Location Encounter Start Date Encounter Closed Date Diagnosis/Indication Diagnosis SNOMED-CT Code Diagnosis ICD10 Code Diagnosis Note [id number] Julius Mccartney MD [facility] Internal Med [address] , [place] [address] 03/11/2021 00:00:00 03/12/2021 09:10:35 [id number] Julius Mccartney MD [facility] Internal Med [address] , [place] [address] 10/21/2021 00:00:00 10/22/2021 08:57:37 [id number] Lazaro Broderick MD [facility] [place] [address] [facility] [address] [place] [address] 03/03/2022 00:00:00 03/03/2022 17:34:59 [id number] Julius Mccartney MD [facility] Internal Med [address] , [place] [address] 03/17/2022 00:00:00 03/17/2022 21:23:13 [id number] Lazaro Broderick MD [facility] [place] [address] [facility] [address] [place] [address] 05/20/2022 00:00:00 05/20/2022 17:35:43 [id number] Julius Mccartney MD [facility] Internal Med [address] , [place] [address] 07/30/2022 11:47:46 07/30/2022 13:59:19 Vitamin D deficiency 46791779 E55.9 Hyperlipidemia 42382689 E78.5 Paresthesi a of lower extremity 483087110 R20.2 Health Concerns Section Related Observation LastModified by Organization Detai ls LastModified Time None Recorded Concern Status LastModified by Organization Details LastModified Time None Recorded Advance Directives Directive N: Payers Encounter Date Sequence Insurance Name Policy Number Policy Pastor Covered Member ID Pastor Member ID Guarantor Name 07/30/2022 1 [facility] [id number] Piedad Flores [id number] Piedad Flores Notes Date Note Type Note Provider Name and Address Organization Details Recorded Time 3 text/html Some numbness feeling in her feetLow vitamin-D level needs to be checkedDyslipidemia taking rosuvastatinAnd she has the unusual feelings in her feet from time to time Julius Mccartney MD [address] [place] [address], [place], [address], [place] - [facility] [employer] 09/06/2022 13:18:33 OBGyn Episode No OBEpisode recorded.
--- OUTSIDE RECORDS SUMMARY | 2024-10-17 10:34 | XMS_ITS | Encounter Summary ---
Author Organization [facility] Address [address] [place] [address] Phone Care Team Providers Care Carder Blankets Name Role Phone Fransisco Mccartney MD Primary Care Provider [phone] Anuradha Eid MD Unavailable Encounter Details Date Type Department Care Team (Late st Contact Info) Description 10/05/2017 Orders Only [facility] ProviderOrly MD [address] [place], [place] [id number] Social History Tobacco Use Types Packs/Day Years Used Date Smoking Tobacco: Never Smokeless Tobacco: Never Alcohol Use Standard Drinks/Week Comments Yes 0 (1 standard drink = 0.6 oz pur e alcohol) Comments No Sex and Gender Information Value Date Recorded Sex Assigned at Not on file 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 Historical Provider LAB CYTOLOGY ORDERABLES F inal Result documented in this encounter Visit Diagnoses Not on filedocumented in this encounter Care Teams Carder Blankets Relationship Specialty Start Date End Date Fransisco Mccartney MD PCP - General Internal Medicine 09/07/17 Anuradha Eid MD [facility] [facility] [address] Josiane BERNAL [address] [place] [address] Consulting Physician Obstetrics and Gynecology 10/05/17 documented as of this encounter
--- OUTSIDE RECORDS SUMMARY | 2024-10-17 10:34 | XMS_ITS | Clinical Summary ---
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
--- OUTSIDE RECORDS SUMMARY | 2024-10-17 10:34 | XMS_ITS | Referral Summary ---
Author Organization [address] Address [facility] [place] [address] Care Team Providers Care Manager College Name Role Phone Fransisco Mccartney MD Primary Care Provider + [phone] Anuradha Eid MD Unavailable Allergies No known active allergies Medications rosuvastatin (CRESTOR) 20 mg tablet Take 1 tablet (20 mg total) by mouth daily 11/28/2022 Active ergocalciferol (VITAMIN D) 50,000 unit capsule Take 1 capsule (50,000 Units total) by mouth 11/26/2022 Active naproxen (NAPROSYN) 500 mg tablet Take 1 tablet (500 mg total) by mouth 2 (two) times a day with meals 30 tablet 01/08/2024 Active Active Problems No known active problems Social History Tobacco Use Types Packs/Day Years Used Date Smoking Tobacco: Never Smokeless Tobacco: Never Tobacco Cessation:Counseling Given: Not Answered Alcohol Use Standard Drinks/Week Comments Yes 0 (1 standard drink = 0.6 oz pur e alcohol) Personal Safety Answer Date Recorded Have you ever been in or are you currently in a harmful physical or emotional relationship or is someone making you feel afraid or unsafe? 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 Gender Identity Not on file Sexual Orientation Not on file Last Filed Vital Signs Vital Sign Reading Time Taken Comments Blood Pressure 125/71 01/08/2024 2:57 PM CDT Pulse 69 01/08/2024 2:57 PM CDT Temperature 36.7 C (98.1 F) 01/08/2024 2:57 PM CDT Respiratory Rate 16 01/08/2024 2:57 PM CDT Oxygen Saturation 98% 01/08/2024 2:57 PM CDT Inhaled Oxygen Concentration - - Weight 70.7 kg (155 lb 13.8 oz) 01/08/2024 2:57 PM CDT Height 157.5 cm (5' 2 ) 12/18/2022 2:12 PM CDT Body Mass Index 28.51 12/18/2022 2:12 PM CDT Plan of Treatment Not on file Insurance [facility]US [facility]PP[facility] Address: [address] [address] [place] [address] [facility] H[facility]ICE PLUS [facility]/PP[facility] Address: [place] [address] Care Teams Manager College Relationship Specialty Start Date End Date Fransisco Mccartney MD PCP - General Internal Medicine 09/07/17 Anuradha Eid MD [address] [place] [address] [place] [address] Consulting Physician Obstetrics and Gynecology 10/05/17
--- OUTSIDE RECORDS SUMMARY | 2024-10-17 10:34 | XMS_ITS | Clinical Summary ---
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 Gender Identity Not on file Sexual Orientation Not on file Plan of Treatment Health Maintenance Due Date Last Done Comments Hepatitis C Virus (HCV) Screening 1965 TdaP Immunization 1965 Hepatitis B Immunization (1 of 3 - 19+ 3-dose series) 02/11/1984 Pap Smear 1986 Cervical Cancer Screening (CCS) 1995 HPV/Cotest 1995 Colonoscopy 2010 Colorectal Cancer Screening 2010 Cologuard 2015 Immunochemical Fecal Occult Blood 2015 Mammogram 2015 Pneumococcal Immunization (5 0+ years) (1 of 1 - PCV) 2015 Zoster Immunization (1 of 2) 2015 Influenza Immunization (#1) 2024 04/03/2021 SARS-COV-2 Immunization ( season) 2024 06/12/2021, 09/07/2020, 08/05/2020 Respiratory Syncytial Virus (RSV) Immunization (Adult) (1 - 1-dose 75+ series) 02/11/2040 Meningococcal Immunization (ACWY) Aged Out No longer eligible b ased on patient's age to complete this topic Pneumococcal Immunization Combined Aged Out No longer eligible b ased on patient's age to complete this topic Rotavirus Immunization Aged Out No lo nger eligible based on patient's age to complete this topic
--- OUTSIDE RECORDS SUMMARY | 2024-10-17 10:34 | XMS_ITS | Clinical Summary ---
Author Organization [address] Address [facility] [place] [address] Care Team Providers Care Cathode Washer Name Role Phone Fransisco Mccartney MD Primary Care Provider [phone] Anuradha Eid MD Unavailable [phone] Allergies No known active allergies Medications rosuvastatin [...] Active Active Problems No known active problems Surgical History Surgery Date Site/Laterality Comments GANGLION CYST EXCISION Right Family History Medical History Relation Name Comments Heart disease Mother Relation Name Status Comments Mother Social History Tobacco Use Types Packs/Day Years [...] on file Legal Sex 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[employer] Gender Identity Not on file Sexual Orientation Not on file Obstetrics History Para Term AB IAB SAB Ectopic Multiple Livin g Live Births 2 2 2 2 2 Date Outcome GA Total Labor Labor/2nd/3rd Weight Sex Type Anes PTL Kaila A1 A5 Name Clin Term Term Comments FTVD x2 Last Filed Vital Signs Vital Sign Reading [...] 12/18/2022 2:12 PM CDT Plan of Treatment Health Maintenance Due Date Last Done Comments Breast Cancer Screening-Mammogram 1965 Cervical Cancer Screening 1965 Colon Cancer Screening-Colonoscopy 1965 Depression Screening 1965 Hepatitis C Screening 1965 DTaP/Tdap/Td Vaccine (1 - Tdap) 02/11/1976 Hepatitis B Screening 1983 Zoster Vaccine (1 of 2) 2015 Regular Well Visit/Exam 18-64 10/05/2018 10/05/2017 Covid-19 Vaccine (4 - 2023-2 5 season) 2024 06/12/2021, 09/07/2020, 08/05/2020 Influenza Vaccine (Season Ended) 2025 04/03/2021 Pneumococcal vaccine <65 Aged Out No longer eligible based on patient's age to complete this topic Insurance [facility] HMO/PPO Address: [address] [address] [place] [address] [facility] HMO [facility] CHO[facility] H[facility]/PPO Address: [address] [address] [place] [address] Care Teams Cathode Washer Relationship Specialty Start Date End Date Fransisco Mccartney MD PCP - General Internal Medicine 09/07/17 Anuradha Eid MD [address] [place] [address] Consulting Physician Obstetrics and Gynecology 10/05/17
--- NOTE | 2024-10-17 11:15 | NEURO_ITS ---
Impression: # Complains of right hand pain. ? # Normal Nerve Conduction Study. ? # No Carpal Tunnel Syndrome or ulnar neuropathy. ? # Normal needle/EMG exam. ? # Clinical correlation recommended. Nerve Conduction Studies Anti Sensory Summary Table ?Stim Site NR Peak (ms) P-T Amp (?V) Site1 Site2 Delta-P (ms) Dist (cm) Ha (m/s) Left Median Anti Sensory (2-3nd Digit) Wrist ? 3.2 58.0 Wrist 2-3nd Digit 3.2 14.0 44 Wrist ? 3.3 60.3 Wrist 2-3nd Digit 3.2 14.0 44 Right Median Anti Sensory (2-3nd Digit) Wrist ? 2.9 79.0 Wrist 2-3nd Digit 2.9 14.0 48 Wrist ? 2.6 50.9 Wrist 2-3nd Digit 2.9 14.0 48 Left Radial Anti Sensory (Base 1st Digit) Wrist ? 2.1 31.6 Wrist Base 1st Digit 2.1 0.0 Right Radial Anti Sensory (Base 1st Digit) Wrist ? 2.3 16.0 Wrist Base 1st Digit 2.3 0.0 Left Ulnar Anti Sensory (5th Digit) Wrist ? 2.7 40.6 Wrist 5th Digit 2.7 14.0 52 Right Ulnar Anti Sensory (5th Digit) Wrist ? 2.8 44.5 Wrist 5th Digit 2.8 14.0 50 Motor Summary Table ?Stim Site NR Onset (ms) O-P Amp (mV) Site1 Site2 Delta-0 (ms) Dist (cm) Ha (m/s) Left Median Motor (Abd Poll Brev) Wrist ? 3.0 2.6 Elbow Wrist 4.6 28.0 61 Elbow ? 7.6 2.3 Right Median Motor (Abd Poll Brev) Wrist ? 3.1 8.0 Elbow Wrist 4.9 29.0 59 Elbow ? 8.0 7.1 Left Ulnar Motor (Abd Dig Minimi) Wrist ? 2.4 9.9 A Elbow Wrist 5.0 30.0 60 A Elbow ? 7.4 8.6 B Elbow Wrist 3.6 21.0 58 B Elbow ? 6.0 4.9 Right Ulnar Motor (Abd Dig Minimi) Wrist ? 2.6 8.5 A Elbow Wrist 4.7 29.0 62 A Elbow ? 7.3 7.1 B Elbow Wrist 3.4 21.0 62 B Elbow ? 6.0 7.5 F Wave Studies ?NR F-Lat (ms) L-R F-Lat (ms) Left Median (Mrkrs) (Abd Poll Brev) ? 26.94 0.72 Right Median (Mrkrs) (Abd Poll Brev) ? 26.22 0.72 Left Ulnar (Mrkrs) (Abd Dig Min) ? 27.56 1.46 Right Ulnar (Mrkrs) (Abd Dig Min) ? 26.09 1.46 EMG ?Side Muscle Nerve Root Ins Act Fibs Amp Dur Recrt Comment Right 1stDorInt Ulnar C8-T1 Nml Nml Nml Nml Nml Right Ext Indicis Radial (Post Int) C7-8 Nml Nml Nml Nml Nml Right Ext Digitorum Radial (Post Int) C7-8 Nml Nml Nml Nml Nml Right BrachioRad Radial C5-6 Nml Nml Nml Nml Nml Right PronatorTeres Median C6-7 Nml Nml Nml Nml Nml Right Abd Poll Brev Median C8-T1 Nml Nml Nml Nml Nml Right ABD Dig Min Ulnar C8-T1 Nml Nml Nml Nml Nml Right FlexPolLong Median (Ant Int) C7-8 Nml Nml Nml Nml Nml Right Abd Poll Long Radial (Post Int) C7-8 Nml Nml Nml Nml Nml Left 1stDorInt Ulnar C8-T1 Nml Nml Nml Nml Nml Left Ext Indicis Radial (Post Int) C7-8 Nml Nml Nml Nml Nml Left Ext Digitorum Radial (Post Int) C7-8 Nml Nml Nml Nml Nml Left BrachioRad Radial C5-6 Nml Nml Nml Nml Nml Left PronatorTeres Median C6-7 Nml Nml Nml Nml Nml Left Abd Poll Brev Median C8-T1 Nml Nml Nml Nml Nml Left ABD Dig Min Ulnar C8-T1 Nml Nml Nml Nml Nml Left FlexPolLong Median (Ant Int) C7-8 Nml Nml Nml Nml Nml Left Abd Poll Long Radial (Post Int) C7-8 Nml Nml Nml Nml Nml MTDD
== END 2024-10-17 10:20 | disposition home or self-care (01) ==
PROVIDERS: PCP Internal Medicine; Visit Provider Internal Medicine
DX: M79.641 Pain in right hand (principal)
CPT/HCPCS: 95886; 95911

== ENCOUNTER 2024-12-27 12:16 | Emergency (ER) | payer OTHER, SELFPAY ==
--- NOTE | ~2024-12-27 | XR_ITS ---
EXAMINATION: XR knee LT min 4V DATE: 12/27/2024 13:14 INDICATION: Swelling at the proximal left tibia post fall one week prior TECHNIQUE: Anteroposterior, 2 oblique and crosstable lateral views of the left knee were obtained COMPARISON: None. FINDINGS: Alignment is normal. No fracture. No joint effusion/layering lipohemarthrosis. Tiny marginal osteoph ytes at the lateral and patellofemoral compartments consistent with at least mild osteoarthritis. No evident associated joint space narrowing although this could be underestimated on nonweightbearing im aging. Soft tissue swelling with subcutaneous edema anterior to the anterior tibial tubercle. IMPRESSION: 1. No left knee joint effusion or acute osseous abnormality. Reviewed, dictated and finalized at location A.
[2024-12-27 12:53] VITALS: BP 109/78; PULSE 60; RESP 16; TEMP 36.9; O2SAT 100
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
== END 2024-12-27 13:40 | disposition home or self-care (01) ==
PROVIDERS: PCP Internal Medicine
DX: S80.12XA Contusion of left lower leg, initial encounter (principal); W01.198A Fall on same level from slipping, tripping and stumbling with subsequent striking against other object, initial encounter
CPT/HCPCS: 73564; 99213; G0463